=== PATIENT | female | born 2000 | race Two or more races ===

== ENCOUNTER → 2023-12-16 | Outpatient (CLI) | payer BC ==
[2023-12-16 11:21] LABS: Basophils # (auto) 0.1 10 ^3/uL (0-0.2); Basophils % (auto) 0.5 % (0.0-2.0); Eosinophils # (auto) 0 10 ^3/uL (0-0.8); Eosinophils % (auto) 0.4 % (0.0-7.0); Hematocrit 41.1 % (36.0-46.0); Hemoglobin 14.1 g/dL (12.2-16.2); Lymphocytes # (auto) 1.7 10 ^3/uL (0.4-5.4); Lymphocytes % (auto) 15.8 % (10.0-50.0); Mean Corpuscular Hemoglobin 31.3 pg (28.0-32.0); Mean Corpuscular Hgb Conc. 34.3 g/dL (32.0-36.0); Mean Corpuscular Volume 91.3 fL (80.0-100.0); Monocytes # (auto) 0.6 10 ^3/uL (0-1.3); Monocytes % (auto) 5.6 % (0.0-12.0); Neutrophils # (auto) 8.5 10 ^3/uL (1.6-8.6); Neutrophils % (auto) 77.7 % (37.0-80.0); Platelet Count (auto) 405 10^3/uL (140-450); Red Cell Distribution Width 13.4 % (11.8-14.3); White Blood Cell 10.9 10^3/uL (4.4-10.8)
[2023-12-16 11:49] LABS: Amphetamine Screen, Urine Neg (NEGATIVE); Barbiturate Scree,Urine Neg (NEGATIVE); Benzodiazephine Screen, Urine Neg (NEGATIVE); Cocaine Screen, Urine Neg (NEGATIVE); Opiate Scree,Urine Neg (NEGATIVE); Phencyclidine Screen, Urine Neg (NEGATIVE)
[2023-12-16 11:50] LABS: Cannabinoid Screen, Urine Neg (NEGATIVE)
[2023-12-17 06:06] LABS: RPR Non Reactive (Non Reactive)
[2023-12-18 00:07] LABS: Chlamydia Trachomatis, NAA Negative (Negative); Neisseria gonorrhoeae, NAA Negative (Negative)
== END | disposition home or self-care (01) ==
LOC: LAB 09:43
PROVIDERS: ATTEND Obstetrics & Gynecology
DX: Z34.80 Encounter for supervision of other normal pregnancy, unspecified trimester (principal); Z31.430 Encounter of female for testing for genetic disease carrier status for procreative management; N39.0 Urinary tract infection, site not specified
CPT/HCPCS: 36415; 80307; 83036; 84144; 84702; 85025; 86592; 86703; 86762; 86850; 86900; 86901; 87086; 87340

== ENCOUNTER 2024-05-27 08:01 | Inpatient (IN) | payer BC, MEDICAID ==
[~2024-05-27] VITALS: Ht 165.1 cm; Wt 80.7 kg
--- NOTE | 2024-05-27 12:59 | DVH ---
BIOPHYSICAL PROFILE HISTORY: LOW STEPHY Comparison Study: None TECHNIQUE: Multiple real-time grayscale sonographic images through the gravid uterus of the fetus wi th duplex Doppler color flow and M-mode spectral analysis FINDINGS: BIOPHYSICAL PROFILE: breathing score: 2 movement score: 2 tone score: 2 Quantitative STEPHY score: 2 (STEPHY: 3.51 Cm, deepest pocket measures 2.4 cm.) Total score: 8 The cervix is not visualized Single live fetus in cephalic presentation. heart rate 142 beats per minute. Anterior placenta without previa or abruption IMPRESSION: Biophysical profile score: 8 STEPHY measures 3.5 cm. Deepest pocket measures 2.4 cm.
[2024-05-27] MEDS ORDERED: LACTATED RINGER'S 1,000 ML IV ONE (13:15)
[2024-05-27] MEDS ORDERED: LACTATED RINGER'S 1,000 ML IV SCH (13:15)
[2024-05-27 13:35] LABS: Eosinophils # (auto) 0.2 10 ^3/uL (0-0.8); Eosinophils % (auto) 1.2 % (0.0-7.0); Hemoglobin 11.6 g/dL (12.2-16.2); Monocytes # (auto) 0.7 10 ^3/uL (0-1.3); Nucleated Red Blood Cells % 0.1 %; White Blood Cell 14.1 10^3/uL (4.4-10.8)
[2024-05-27 13:38] LABS: Basophils # (auto) 0 10 ^3/uL (0-0.2); Basophils % (auto) 0.3 % (0.0-2.0); Hematocrit 34.6 % (36.0-46.0); Lymphocytes % (auto) 13.9 % (10.0-50.0); Mean Corpuscular Hemoglobin 29.2 pg (28.0-32.0); Mean Corpuscular Hgb Conc. 33.6 g/dL (32.0-36.0); Mean Corpuscular Volume 86.9 fL (80.0-100.0); Monocytes % (auto) 4.9 % (0.0-12.0); Neutrophils # (auto) 11.3 10 ^3/uL (1.6-8.6); Neutrophils % (auto) 79.7 % (37.0-80.0); Platelet Count (auto) 464 10^3/uL (140-450); Red Blood Cells 3.98 10^6/uL (4.0-5.20); Red Cell Distribution Width 14.3 % (11.8-14.3)
[2024-05-27 13:48] LABS: Alanine Aminotransferase 15 U/L (7-40); Albumin 4.1 g/dL (3.2-4.8); Anion Gap 10 (5-15); Aspartate Aminotransferase 15 U/L (13-40); Carbon Dioxide 23 mmol/L (20-31); Chloride 104 mmol/L (98-107); Glucose 90 mg/dL (74-106); Potassium 3.9 mmol/L (3.5-5.1); Sodium 137 mmol/L (136-145); Total Protein 6.6 g/dL (5.7-8.2)
[2024-05-27 13:49] LABS: Alkaline Phosphatase 165 U/L (46-116); Bilirubin, Total 0.3 mg/dL (0.2-1.0); Blood Urea Nitrogen 7 mg/dL (9-23)
[2024-05-27 13:55] LABS: INR 0.96 (0.9-1.15); Partial Thromboplastin Time 26.2 SEC (24.5-34.5); Prothrombin Time 10.2 sec (9.3-11.8)
--- NOTE | 2024-05-27 14:17 | DVH ---
OB ULTRASOUND COMPLETE: HISTORY: Low STEPHY TECHNIQUE: Multiple real-time grayscale images of the gravid uterus with duplex Doppler color flow an d M-mode spectral analysis. FINDINGS: IUP single live fetus at 37 weeks 1 day average ultrasound age (AUA) based on composite averages of t he BPD, head circumference, abdominal circumference and femur length Age based on (early ultrasound) : 35 weeks 0 days MEASUREMENTS: BPD: 9.1 cm GA: 37 weeks w 0 d HC: 34.5 cm GA: 40w 0 d AC: 32.2 cm GA: 36 w 1 d F L: 6.9 cm GA: 35 w 3 d HC/AC Ratio: 1.07 Range: 0.9-1.05 Estimated weight 2940 grams; given lbs given oz, not given percentile. heart rate 145 beats per minute STEPHY 5. cm, consistent with oligohydramnios MVP 2.9 cm anatomic survey: Lateral ventricles: Not well seen Posterior fossa: Not well seen Umbilical cor d: Not well seen C-spine: None evaluate T-spine: not well evaluated L-spine: Not well evaluated Hea rt: Normal Kidneys: Kidneys normal bilaterally Bladder: Normal Lower extremities: Not well seen Upper extremities: Not well seen Stomach: Normal Diaphragms: Not well evaluated Nose/lips: Not well seen R VOT: Not well seen LVOT: Not well evaluated Cephalic Presentation Anterior Grade 2 Placenta without previa or abruption Cervix appears closed measuring 0.2.5 cm foreshortened IMPRESSION: 1. IUP single live fetus at 37 weeks 1 AUA corresponding to an SOTERO of 06/16/2024. 2. Oligohydramnios 5.6 cm 3. Cervix is 2.5 cm long and is foreshortened.
--- NOTE | 2024-05-27 14:17 | DVHTS ---
Transfer Summary Transfer Summary Date of Admission May 27, 2024 at 11:44 Date of Transfer: May 27, 2024 Transfer Diagnosis iup at 35 wks with oligo Brief Hx & Hospital Course: pt is admitted for oligo ,she wishe sto del at [facility] Transfer to: [facility] Discharge Instructions: via ambulance Transfer Status stable Visit Coding OBGYN Date of Service: May 27, 2024 Billing Provider: JJ GRIER DO LOT WORKER Common Visit Codes: 72098-UMA/OBS SAME DATE (HIGH) LOT WORKER Procedure Codes: 27795-24- NON-STRESS TEST JJ GRIER DO May 27, 2024 14:17
--- NOTE | 2024-05-27 14:18 | DVHDS2 ---
Physician Discharge Progress N Final Diagnosis: iup at 35wks w/oligo Operations or Procedures: Operations or Procedures nst,sono Condition on Discharge: Higher Level of Care Disposition: Acute Care Facility Discharge Instructions: Diet: See Comment Activity: Bed rest Medications: na Follow Up Care: Specialist: to [facility] Discharge Statement: "Patient was advised to return to the ER or call 911 if any headaches, dizziness, shortness of breath, chest pain, abdominal pain, bleeding, fevers, or worsening of medical condition. Patient was counseled about treatment plan, medications, possible side effects, patientverbalized understanding. All questions were answered to the best of my ability. This discharge took greater then 30 minutes in planning, reviewing documentation, counseling the patient, and discussing with other team members." Visit Coding OBGYN Date of Service: May 27, 2024 Billing Provider: JJ GRIER DO SENIOR PORTFOLIO MANAGER Common Visit Codes: 67957-OHZ/OBS SAME DATE (HIGH) SENIOR PORTFOLIO MANAGER Procedure Codes: 97785-36- NON-STRESS TEST JJ GRIER DO May 27, 2024 14:18
--- NOTE | 2024-05-27 14:23 | DVHHP2 ---
OB CC & HPI Date Date of Admission: May 27, 2024 Patient Identification: : 1 Para: 0 EDC: July 01, 2024 EGA: 35wks Chief Complaints: Reason for admission: other Admission Nurse Assessment Rev: No History of Present Complaints pt is admitted for low paty ,her paty was 7 about 2 days ago ,denies rom or vag bleeding. paty is 3.5 cm/vx and 5-14 Past Medical History Cardiac: No pertinent Hx Pulmonary: No pertinent Hx Central Nervous System: No pertinent Hx GI: No pertinent Hx Hemotology/Oncology: No pertinent Hx Hepatobiliary: No pertinent Hx Psychiatric: No pertinent Hx Musculoskeletal: No pertinent Hx Rheumotologic: No pertinent Hx Infectious Disease: No peritnent Hx ENT: No pertinent Hx Renal/: No pertinent Hx Endocrine: No pertinent Hx Dermatology: No pertinent Hx Past Surgical History: No pertinent Hx OB History OB History Care: Good Care Ultrasounds: Normal mid trimester US Obstetrical Complications: None Medical Complications: None Allergies: Coded Allergies: NO KNOWN ALLERGIES (Unverified , 05/27/24) Current Medications Current Medications Medications (Trade) Dose Ordered Sig/Martin Route PRN Reason Start Time Stop Time Status Last Admin Lactated Ringer's 1,000 ml @ 125 mls/hr Q8H IV 05/27/24 13:15 Family & Social History Family/Social History Blood Type: Unknown Rubella: unknown RPR/VDRL: Negative GBS Status: Unknown HBsAG: Negative Review of Systems Constitutional: No symptom reported Ears, Nose, & Throat: No symptom reported Eyes: No symptom reported Pulmonary/Respiratory: No symptom reported Cardiovascular: No symptom reported Gastrointestinal: No symptom reported Genitourinary: No symptom reported Musculoskeletal: No symptom reported Skin: No symptom reported Psychiatric: No symptom reported Endocrine: No symptom reported Hemotologic/Lymphatic: No symptom reported OB Admission Exam Physical Exam HEENT: TMs Normal, Fontanelles Normal, Nasal Mucosa Normal, Eyes non-injected, Oropharynx Normal, PERRLA, Moist Membranes, EOMI Heart: Rhythm Normal Lungs: Clear Abdomen: Non tender Extremities: Normal Reflexes: Normal Cervical Dilatation: Fingertip Effacement: 25% Station: -3 Membranes: Intact Heart Rate: 130's Accelerations: Accelerations Present Decelerations: No Decelerations Short Term Variability: Present Halfway Variability: Average (6-25) Contractions on Admission: >10 Minutes Apart Intensity: Mild OB Plan Plan Admitting Diagnosis: iup at 35wks with oligo Other Plan: transfer [facility] ,dr wheat accepted transfer and dr AGUAYO WILL MANAGE Visit Coding OBGYN Date of Service: May 27, 2024 Billing Provider: JJ GRIER DO SAFETY TEACHER Common Visit Codes: 24381-ULT/OBS SAME DATE (HIGH) SAFETY TEACHER Procedure Codes: 38180-09- NON-STRESS TEST JJ GRIER DO May 27, 2024 14:23
[2024-05-27] MEDS: BETAMETHASONE ACET (30mg/5ml) 5ml Vial 6mg/ml IM ONE (16:48)
== END 2024-05-27 16:40 | disposition short-term general hospital (02) | DRG 833 ==
LOC: LDRP 11:44 → UNDOADMOB 11:44 → LDRP 11:56 → UNDOADMOB 11:56 → OBSVTOIN 14:40 → INTOOBSV 14:40 → UNDODISIN 16:40
PROVIDERS: ADMIT Obstetrics & Gynecology; ATTEND Obstetrics & Gynecology
DX: O41.03X0 Oligohydramnios, third trimester, not applicable or unspecified (principal); Z3A.35 35 weeks gestation of pregnancy
CPT/HCPCS: 36415; 76805; 76817; 76819; 80053; 81002; 85025; 85610; 85730; 94760; G0378